=== PATIENT | male | born 1980 | race Caucasian/White ===

== ENCOUNTER 2018-11-25 07:12 | Day surgery (SDC) | payer OTHER ==
[~2018-11-25 07:12] MED LIST: ASCORBIC ACID 500 MG TABLET PO PRN; CEFAZOLIN SODIUM 2 GM in DEXTROSE 5%-WATER 100 ML IV PRN; TRAMADOL HCL 50 MG TABLET PO PRN
[2018-11-25] MEDS ORDERED: BUPIVACAINE HCL 0.25 % INJ/PF (2.5 MG/1 ML) 30 ML VIAL ONE (07:48)
[2018-11-25] MEDS ORDERED: KETOROLAC TROMETHAMINE 60 MG/2 ML SDV ONE (07:49)
[2018-11-25] MEDS ORDERED: LIDOCAINE 2%/EPINEPHRINE INJ 20 ML VIAL ONE (08:25)
[2018-11-25] MEDS ORDERED: ROPIVACAINE HCL 0.5% INJ/PF (5 MG/1 ML) 30 ML SDV ONE (08:26)
[2018-11-25] MEDS ORDERED: LIDOCAINE 2% INJ (20 MG/ML) 20 ML MDV ONE (08:26)
[2018-11-25] MEDS ORDERED: MIDAZOLAM 2 MG/2 ML INJ IV ONE (08:30)
[2018-11-25] MEDS ORDERED: TRAMADOL HCL 50 MG TABLET ONE (08:30)
[2018-11-25] MEDS ORDERED: MIDAZOLAM 2 MG/2 ML INJ ONE ×3 (08:30→09:02)
[2018-11-25] MEDS ORDERED: HYDROMORPHONE HCL INJ/PF 2 MG/ML AMPULE ONE (09:02)
[2018-11-25] MEDS ORDERED: FENTANYL CITRATE INJ/PF 100 MCG/2 ML AMPUL ONE ×2 (09:02→09:19)
[2018-11-25] MEDS ORDERED: PROPOFOL INJ 200 MG/20 ML VIAL IV ONE (09:03)
[2018-11-25] MEDS ORDERED: LIDOCAINE 1% INJ-PF (10 MG/ML) 30 ML SDV ONE (09:26)
[2018-11-25] MEDS ORDERED: MEPERIDINE HCL/PF INJ 25 MG/1 ML DISP.SYRIN IV PRN (10:10)
[2018-11-25] MEDS ORDERED: MORPHINE SULFATE 10 MG/ML INJ IV PRN (10:10)
[2018-11-25] MEDS ORDERED: OXYCODONE-ACETAMINOPHEN 5-325 MG TABLET PO PRN ×2 (10:10)
[2018-11-25] MEDS ORDERED: DIPHENHYDRAMINE HCL 50 MG/ML VIAL IV PRN (10:10)
[2018-11-25] MEDS ORDERED: ONDANSETRON HCL INJ/PF 4 MG/2 ML SDV IV PRN ×2 (10:10→11:54)
[2018-11-25] MEDS ORDERED: FENTANYL CITRATE INJ/PF 100 MCG/2 ML AMPUL IV PRN ×3 (10:10)
[2018-11-25] MEDS ORDERED: OXYCODONE HCL IR 5 MG TABLET PO PRN (11:54)
--- NOTE | 2018-11-25 12:02 | RADIOLOGY REPORT (SQ) ---
EXAM DESCRIPTION: WRIST RIGHT 2 VIEWS COMPLETED DATE/TIME: 11/25/2018 11:47 am REASON FOR STUDY: POST OP S52.531A COLLES' FRACTURE OF RIGHT RADIUS, INIT FOR CLOS FX COMPARISON: None. NUMBER OF VIEWS: Three views. TECHNIQUE: AP, lateral, and oblique radiographic images acquired of the right wrist. LIMITATIONS: None. FINDINGS: MINERALIZATION: Normal. BONES: T plate and screws in place that transfix a comminuted fracture of the distal radius ; the lashay dware is intact and the fracture alignment is anatomic. There is also a displaced fracture of the ul sapna styloid process. SOFT TISSUES: Diffuse soft tissue swelling. OTHER: No other finding. IMPRESSION: 1. Status post ORIF of a comminuted distal radial fracture. The hardware is intact in t he fracture alignment is anatomic. 2. Displaced fracture of the ulnar styloid process. TECHNICAL DOCUMENTATION: JOB ID: [id number] [employer]- All Rights Reserved Reading location - IP/workstation name: [email or web address]
--- NOTE | 2018-11-25 12:03 | RADIOLOGY REPORT (SQ) ---
EXAM DESCRIPTION: WRIST RIGHT 2 VIEWS; NO CHG FLUORO COMPLETED DATE/TIME: 11/25/2018 11:21 am REASON FOR STUDY: ORIF RT WRIST ASST WITH FLUORO IN OR S52.531A COLLES' FRACTURE OF RIGHT RADIUS, I NIT FOR CLOS FX COMPARISON: None. FLUOROSCOPY TIME: 35 seconds 5 images saved to PACS. TECHNIQUE: Intra-operative images acquired during surgical procedure to evaluate progress. NUMBER OF IMAGES: Cine fluoroscopic images. LIMITATIONS: None. FINDINGS: Fluoroscopic images of the right wrist were obtained during a ORIF of a Colles' fracture. IMPRESSION: IMAGE(S) OBTAINED DURING PROCEDURE. COMMENT: Quality ID [id number]: Final reports for procedures using fluoroscopy that document radiation exp osure indices, or exposure time and number of fluorographic images (if radiation exposure indices are not available) Please consult full operative report of the attending physician for description of the procedure. TECHNICAL DOCUMENTATION: JOB ID: [id number] [employer]- All Rights Reserved Reading location - IP/workstation name: [email or web address]
--- NOTE | 2018-11-25 12:03 | RADIOLOGY REPORT (SQ) ---
EXAM DESCRIPTION: WRIST RIGHT 2 VIEWS; NO CHG FLUORO COMPLETED DATE/TIME: 11/25/2018 11:21 am REASON FOR STUDY: ORIF RT WRIST ASST WITH FLUORO IN OR S52.531A COLLES' FRACTURE OF RIGHT RADIUS, I NIT FOR CLOS FX COMPARISON: None. FLUOROSCOPY TIME: 35 seconds 5 images saved to PACS. TECHNIQUE: Intra-operative images acquired during surgical procedure to evaluate progress. NUMBER OF IMAGES: Cine fluoroscopic images. LIMITATIONS: None. FINDINGS: Fluoroscopic images of the right wrist were obtained during a ORIF of a Colles' fracture. IMPRESSION: IMAGE(S) OBTAINED DURING PROCEDURE. COMMENT: Quality ID [id number]: Final reports for procedures using fluoroscopy that document radiation exp osure indices, or exposure time and number of fluorographic images (if radiation exposure indices are not available) Please consult full operative report of the attending physician for description of the procedure. TECHNICAL DOCUMENTATION: JOB ID: [id number] [employer]- All Rights Reserved Reading location - IP/workstation name: [email or web address]
--- NOTE | 2018-11-25 12:25 | Operative Report ---
Operative Report DATE OF SURGERY: 11/25/18 PREOPERATIVE DIAGNOSIS: Right distal radius intra-articular fracture POSTOPERATIVE DIAGNOSIS: Same OPERATION: Right distal radius open reduction internal fixation SURGEON: BRIAN DUMONT JR ANESTHESIA: GA COMPLICATIONS: None ESTIMATED BLOOD LOSS: 20cc INTRAOPERATIVE FINDINGS: Intra-articular fracture of the right distal radius PROCEDURE: INDICATIONS FOR OPERATION: This is a 38 year-old male who fell from a height and landed on his right outstretched hand, sustained a right distal radius fracture. The patient was seen and evaluated initially at an outside hospital where he had x-rays and CT scan done. They were then transferred to this hospital for definitive surgical fixation. All the risks and benefits of the procedure were discussed with the patient, and informed consent was obtained. DESCRIPTION OF OPERATION: The patient was brought to the operating room and placed in the supine position. Then, 3 g of cefazolin was given preoperatively. After satisfactory general endotracheal anesthesia was administrated, a tourniquet, well padded, was placed on the right upper arm, the right upper extremity was prepped and draped in regular sterile routine fashion. The fracture was provisionally reduced with the help of flouroscopy, and percutaneously pinned with a K-wire through the radial styloid. The Flexor Carpi Radialis approach was performed. The FCR tendon was identified and was retracted ulnarly. The fascia was then opened, and the pronator quadratus was incised sharply from the lateral border of the distal radius. The fracture was identified and was and lightly debrided. We were able to anatomically reduce the distal radius fracture and provisionally fix with a K-wire. The mini C-arm confirmed anatomic reduction and good alignment of the radial height as well as the inclination. The appropriate plate was chosen and provisionally fixed in place with K-wires. Accordingly, non-locking screws were initially used distally to allow reduction of the plate to the bone. This was followed with proximal non-locking screws. Then locking screws were applied to the remaining distal holes and the distal non-locking screws were exchanged for locking screws. Again, the mini C-arm confirmed good anatomic alignment, and breifly the fracture was taken through live flouroscopy to ensure that there was no dorsal penetration of the screws. The tourniquet was deflated, and hemostasis was ensured with electrocautery. The subcutaneous was then closed with 3-0 monocryl and the skin with running 3-0 monocryl. Dressing was then applied in the form of xeroform, 4x4, ABD, and a loose wrap with a dusty and kerlex, followed by a loosely applied dejuan wrap. The patient has a custom brace that was made for him pre-operatively that he will wear until follow up.
--- NOTE | 2018-11-25 12:28 | Discharge Summary ---
Discharge Summary (SDC) - Discharge Final Diagnosis: Right distal radius fracture, intra-articular Date of Surgery: 11/25/18 Discharge Date: 11/25/18 Condition: Good Discharge Activity: Activity As Tolerated, No Lifting Over 10 Pounds Home Care Assistance: None Needed Report the Following to Your Physician Immediately: Shortness of Breath, Increase in Pain, Fever over 101 Degrees, Unusual Bleeding, Redness, Drainage- Yellow
[2018-11-25] MEDS ORDERED: DEXAMETHASONE SOD PHOSPHATE INJ 4 MG/1 ML VIAL ONE (14:42)
[2018-11-25] MEDS ORDERED: ONDANSETRON HCL INJ/PF 4 MG/2 ML SDV ONE (14:42)
[2018-11-25] MEDS ORDERED: SUCCINYLCHOLINE CHLORIDE INJ 200 MG/10 ML VIAL ONE (14:42)
[2018-11-25 16:04] VITALS: BP 131/72
== END 2018-11-25 13:45 | disposition home or self-care (01) ==
LOC: OROUT 07:12
PROVIDERS: ATTEND Orthopaedic Surgery
DX: S52.571A Other intraarticular fracture of lower end of right radius, initial encounter for closed fracture (principal); W17.89XA Other fall from one level to another, initial encounter; M25.531 Pain in right wrist; E66.9 Obesity, unspecified; R01.1 Cardiac murmur, unspecified; Z68.41 Body mass index [BMI] 40.0-44.9, adult
CPT/HCPCS: 73100; 01830; 25608; C1713 ×8; J2795; J2250; J3490 ×3; J0690; J1100; J1885; J3010; J0330; J2405; J7060; J2704; J1170